=== PATIENT | female | born 1980 | race Two or more races ===

== ENCOUNTER 2022-11-21 17:23 | Emergency (ER) | payer SELFPAY ==
[~2022-11-21] VITALS: Ht 154.9 cm; Wt 61.4 kg
[2022-11-21] MEDS ORDERED: HYDROcodone-ACET 10/325MG TAB PO ONE (18:00)
[2022-11-21 20:32] LABS: Urine Bacteria NONE SEEN /hpf (None Seen); Urine Blood Negative /uL (Negative); Urine Mucus FEW (None Seen); Urine WBC 1 /hpf (0 - 5)
[2022-11-22] MEDS ORDERED: IBUP800T26 PO (00:30)
[2022-11-22] MEDS ORDERED: HYDR-4798 PO (00:30)
[2022-11-22 00:56] VITALS: BP 146/85
== END 2022-11-22 00:58 | disposition home or self-care (01) ==
LOC: ER 17:23
DX: R51.9 Headache, unspecified (principal); R20.0 Anesthesia of skin
CPT/HCPCS: 70450; 81001